=== PATIENT | female | born 1950 ===

== ENCOUNTER 2017-04-15 16:18 | Inpatient (IN) | payer MEDICARE, MEDICAID ==
[~2017-04-15] VITALS: Ht 162.6 cm; Wt 72.0 kg
[2017-04-15] MEDS ORDERED: ACETAMINOPHEN 325 MG TABLET PO ONE (17:00)
[2017-04-15] MEDS ORDERED: SODIUM CHLORIDE 0.9% 1,000ML IVBOLUS ONE (17:00)
[2017-04-15] MEDS ORDERED: ACETAMINOPHEN 325 MG TABLET ONE (17:01)
[2017-04-15 17:08] LABS: MICROSCOPIC AUTO
[2017-04-15 17:10] LABS: CULTURE INDICATED? YES
[2017-04-15 17:37] LABS: BASOPHILS # (AUTO) 0.01 x10^3/uL (0-0.1); BASOPHILS % (AUTO) 0 % (0-1); EOSINOPHILS % (AUTO) 0 % (1-7); LYMPHOCYTES # (AUTO) 1.78 x10^3/uL (1-3.4); LYMPHOCYTES % (AUTO) 13 % (22-44); MD NO; MEAN CORPUSCULAR HEMOGLOBIN 31.2 pg (27.0-34.8); MEAN CORPUSCULAR VOLUME 91.7 fL (80-100); MEAN PLATELET VOLUME 9.1 fL (7.4-10.4); MONOCYTES # (AUTO) 1.25 x10^3/uL (0.2-0.8); MONOCYTES % (AUTO) 9 % (2-9); NEUTROPHILS # (AUTO) 10.98 x10^3/uL (1.8-6.8); NEUTROPHILS % (AUTO) 78 % (42-75); PLATELET COUNT 197 x10^3/uL (130-400); RED CELL DISTRIBUTION WIDTH 13.7 % (9.6-15.2)
[2017-04-15 17:47] LABS: ALBUMIN 3.2 g/dL (3.4-5.0); ANION GAP 9 mmol/L (5-15); CALCIUM 8.4 mg/dL (8.5-10.1); CHLORIDE 105 mmol/L (98-107)
[2017-04-15 17:50] LABS: ALANINE AMINOTRANSFERASE 20 U/L (12-78); ALKALINE PHOSPHATASE 74 U/L (45-117); BILIRUBIN,TOTAL 0.6 mg/dL (0.2-1.0); CREATININE 0.75 mg/dL (0.55-1.02); TOTAL PROTEIN 7.7 g/dL (6.4-8.2)
[2017-04-15 17:55] LABS: RAPID INFLUENZA A Negative (Negative); RAPID INFLUENZA B POSITIVE (Negative)
[2017-04-15] MEDS ORDERED: OSELTAMIVIR 75 MG CAPSULE PO ONE (18:30)
[2017-04-15] MEDS ORDERED: ADAL40KI INJ (18:49)
[2017-04-15] MEDS ORDERED: ONDANSETRON 2MG/ML, 2ML IVPush PRN (19:00)
[2017-04-15] MEDS ORDERED: GUAIFENESIN/DM 200-20MG, 10ML UDC PO PRN (19:00)
[2017-04-15] MEDS ORDERED: POTASSIUM CHLORIDE 20 MEQ TAB.ER.PRT PO ONE (19:00)
[2017-04-15] MEDS ORDERED: D5%-0.9% NACL 1,000 ML IV SCH (19:00)
[2017-04-15] MEDS ORDERED: HYDROcodone/CHLORPHENIR ORAL SUSP PO PRN (19:00)
[2017-04-15] MEDS ORDERED: KETOROLAC 30 MG/1 ML IVPush PRN (19:00)
[2017-04-15] MEDS ORDERED: POTASSIUM CHLORIDE 20 MEQ TAB.ER.PRT ONE (19:14)
[2017-04-15] MEDS: D5%-0.9% NACL 1,000 ML IV SCH (20:09)
[2017-04-15 20:30] VITALS: BP 115/56
[2017-04-15] MEDS: ENOXAPARIN 40 MG/0.4 ML SQ SCH (21:35)
[2017-04-15 22:32] LABS: MICROSCOPIC AUTO
[2017-04-15 22:37] LABS: CULTURE INDICATED? NO
[2017-04-16 02:00] VITALS: BP 110/48
[2017-04-16] MEDS: ACETAMINOPHEN 325 MG TABLET PO PRN ×3 (02:10→18:01)
[2017-04-16] MEDS: D5%-0.9% NACL 1,000 ML IV SCH ×2 (03:54→15:02)
[2017-04-16 07:27] VITALS: BP 134/59
[2017-04-16 09:01] LABS: CLOSTRIDIUM DIFFICILE ANTIGEN NEGATIVE; CLOSTRIDIUM DIFFICILE TOXIN NEGATIVE (Negative)
[2017-04-16 14:36] VITALS: BP 115/61
[2017-04-16 18:38] VITALS: BP 120/59
[2017-04-16] MEDS: ENOXAPARIN 40 MG/0.4 ML SQ SCH (19:00)
[2017-04-17 00:34] VITALS: BP 124/85
[2017-04-17 05:22] LABS: ALBUMIN 2.5 g/dL (3.4-5.0); ANION GAP 9 mmol/L (5-15); CALCIUM 8.3 mg/dL (8.5-10.1); CHLORIDE 108 mmol/L (98-107)
[2017-04-17 05:24] LABS: CREATININE 0.66 mg/dL (0.55-1.02)
[2017-04-17] MEDS: D5%-0.9% NACL 1,000 ML IV SCH (06:42)
[2017-04-17 06:58] VITALS: BP 112/66
[2017-04-17] MEDS ORDERED: POTASSIUM CHLORIDE 20 MEQ TAB.ER.PRT PO ONE (07:30)
[2017-04-17] MEDS ORDERED: VANCOMYCIN PER PHARMACY MC PRN (07:30)
[2017-04-17] MEDS ORDERED: POTASSIUM PHOSPHATE 22 MEQ in SODIUM CHLORIDE 0.9% 500 ML IV ONE ×2 (07:30→14:00)
[2017-04-17] MEDS ORDERED: PHARMACOKINETIC MONITORING MC PRN (07:30)
[2017-04-17] MEDS ORDERED: PHARMACOKINETIC CONSULTATION MC ONE (07:30)
[2017-04-17 08:10] LABS: BASOPHILS # (AUTO) 0.04 x10^3/uL (0-0.1); BASOPHILS % (AUTO) 0 % (0-1); EOSINOPHILS # (AUTO) 0.03 x10^3/uL (0-0.4); EOSINOPHILS % (AUTO) 0 % (1-7); LYMPHOCYTES # (AUTO) 3.01 x10^3/uL (1-3.4); LYMPHOCYTES % (AUTO) 23 % (22-44); MD NO; MEAN CORPUSCULAR HEMOGLOBIN 30.9 pg (27.0-34.8); MEAN CORPUSCULAR HGB CONC 33.3 g/dL (32.4-35.8); MEAN CORPUSCULAR VOLUME 92.6 fL (80-100); MEAN PLATELET VOLUME 10.1 fL (7.4-10.4); MONOCYTES # (AUTO) 1.03 x10^3/uL (0.2-0.8); MONOCYTES % (AUTO) 8 % (2-9); NEUTROPHILS # (AUTO) 9.14 x10^3/uL (1.8-6.8); NEUTROPHILS % (AUTO) 69 % (42-75); PLATELET COUNT 156 x10^3/uL (130-400); RED BLOOD COUNT 4.12 x10^6/uL (3.82-5.3); RED CELL DISTRIBUTION WIDTH 14.1 % (9.6-15.2)
[2017-04-17] MEDS: VANCOMYCIN 1,300 MG in SODIUM CHLORIDE 0.9% 250 ML IV SCH (10:29)
[2017-04-17 14:13] VITALS: BP 129/63
[2017-04-17 20:07] VITALS: BP 127/65
[2017-04-17] MEDS: ENOXAPARIN 40 MG/0.4 ML SQ SCH (20:18)
[2017-04-17] MEDS: ACETAMINOPHEN 325 MG TABLET PO PRN (20:24)
[2017-04-18 01:34] VITALS: BP 106/54
[2017-04-18] MEDS: VANCOMYCIN 1,300 MG in SODIUM CHLORIDE 0.9% 250 ML IV SCH (07:30)
[2017-04-18 10:34] VITALS: BP 120/58
[2017-04-18] MEDS ORDERED: FLU VACC QS2017-18 (36MOS+) UP/PF 0.5 ML IM-VACC ONE (12:30)
[2017-04-18 14:00] VITALS: BP 134/69
== END 2017-04-18 15:29 | disposition home or self-care (01) | DRG 194 ==
LOC: ED 18:00 → OBSVTOIN 18:01 → EDIP 18:01 → INTOOBSV 18:01 → ED 18:12 → 3NE 20:36
PROVIDERS: ADMIT Hospitalist; ATTEND Hospitalist
DX: J10.1 Influenza due to other identified influenza virus with other respiratory manifestations (principal); R65.10 Systemic inflammatory response syndrome (SIRS) of non-infectious origin without acute organ dysfunction; W19.XXXA Unspecified fall, initial encounter; B95.8 Unspecified staphylococcus as the cause of diseases classified elsewhere; R19.7 Diarrhea, unspecified; F17.210 Nicotine dependence, cigarettes, uncomplicated; M06.9 Rheumatoid arthritis, unspecified; R31.9 Hematuria, unspecified; R09.02 Hypoxemia; Y93.89 Activity, other specified; Y92.89 Other specified places as the place of occurrence of the external cause; Y99.8 Other external cause status; Z79.899 Other long term (current) drug therapy; Z90.49 Acquired absence of other specified parts of digestive tract; Z23 Encounter for immunization
CPT/HCPCS: 36415; 71010; 80048; 80053; 81001; 82040; 83605; 83735; 84100; 84145; 85025; 87040; 87086; 87324; 87400; 90686; J1650; J3370; J7042; J7030; J7040; J7050

== ENCOUNTER 2017-10-25 15:57 | Emergency (ER) | payer MEDICARE, MEDICAID ==
[~2017-10-25] VITALS: Ht 162.6 cm; Wt 70.4 kg
[~2017-10-25 15:57] MED LIST: ADAL40KI INJ
[2017-10-25 15:59] VITALS: BP 166/77
== END 2017-10-25 17:51 | disposition home or self-care (01) ==
LOC: ED 17:49
DX: S93.401A Sprain of unspecified ligament of right ankle, initial encounter (principal); I10 Essential (primary) hypertension; M06.9 Rheumatoid arthritis, unspecified; E78.00 Pure hypercholesterolemia, unspecified; Z90.49 Acquired absence of other specified parts of digestive tract; F17.200 Nicotine dependence, unspecified, uncomplicated; W01.0XXA Fall on same level from slipping, tripping and stumbling without subsequent striking against object, initial encounter; Y93.89 Activity, other specified; Y92.009 Unspecified place in unspecified non-institutional (private) residence as the place of occurrence of the external cause; Y99.8 Other external cause status
CPT/HCPCS: 99284